=== PATIENT | male | born 1945 | race Caucasian/White ===

== ENCOUNTER 2019-01-17 09:52 | Inpatient (IN) | payer MEDICARE ==
[2019-01-17] VITALS (7 sets, daily range): BP systolic 142–152; BP diastolic 78–112; PULSE 83–104; TEMP 97.8–99.4
[~2019-01-17] VITALS: Ht 177.8 cm; Wt 67.4 kg
[2019-01-17 10:22] LABS: HEMATOCRIT 39.5 % (42.0-52.0); HEMOGLOBIN 12.7 g/dl (13.5-18.0); MEAN CELL VOLUME 90 fl (80.0-100.0); MEAN CORPUSCULAR HEMOGLOBIN 29 pg (27.0-31.0); MEAN CORPUSCULAR HGB CONC 32 g/dl (33.0-37.0); PLATELET COUNT 157 K/mm3 (130-400); RED BLOOD COUNT 4.39 M/mm3 (4.20-5.60); REDCELL DISTRIBUTION WIDTH-CV 15.3 % (11.5-14.5)
[2019-01-17 10:37] LABS: BAND 16 % (0-10); LYMPHOCYTE 1 % (20.0-51.0); NEUTROPHILS 80 % (42.0-75.2); PLATELET ESTIMATE NORMAL (NORMAL)
[2019-01-17 10:39] LABS: ALBUMIN 3.7 gm/dL (3.5-5.0); BILIRUBIN,TOTAL 0.5 mg/dL (0.0-1.0); CALCIUM 9.2 mg/dL (8.4-10.2); CREATININE, serum 1.68 (0.66-1.25); POTASSIUM 3.9 mmol/L (3.4-5.0); TOTAL PROTEIN 7.2 gm/dL (6.4-8.2)
[2019-01-17] MEDS ORDERED: NORVASC 5MG5 MG/TAB (10:57)
[2019-01-17] MEDS ORDERED: TOPROL XL 25MG25 MG (10:57)
[2019-01-17] MEDS ORDERED: ASPIRIN 81M81 MG/TA2 (10:58)
[2019-01-17] MEDS ORDERED: RT ADVAIR 528 DISKUS (10:58)
[2019-01-17] MEDS ORDERED: LIPITOR 40MG TA40 MG (10:58)
[2019-01-17] MEDS ORDERED: ALBUTEROL0.83 MG/ML (10:59)
[2019-01-17] MEDS ORDERED: PROVENTIL0.09 MG/A1 (10:59)
[2019-01-17 12:02] LABS: COLLECTION METHOD CLEAN CATCH
[2019-01-17 12:14] LABS: MUCOUS Present /lpf; PH 6 (5-8); SQUAMOUS EPITHELIAL None Seen /hpf; URINE APPEARANCE Clear; URINE BACTERIA None Seen /hpf; URINE BILIRUBIN Negative (NEGATIVE); URINE BLOOD Negative (NEGATIVE); URINE COLOR Yellow; URINE GLUCOSE Negative (NEGATIVE); URINE KETONE Negative (NEGATIVE); URINE LEUKOCYTE ESTERASE Negative (NEGATIVE); URINE NITRATE Negative (NEGATIVE); URINE PROTEIN(semi-quant) 2+ (NEGATIVE); URINE UROBILINOGEN Negative (NEGATIVE)
--- NOTE | 2019-01-17 15:33 | NUR ---
Pt up to unit early afternoon from ED. Pt alert and had to be transferred in bed d/t weakness and fall precaution. Pt has significant tremors noted. Pt and spouse report back pain. Pt grimaces with major movement of his back. Pt has pillow to float legs to decrease pressure. Pt RAC IV patent no redness or infiltration and has NS running per orders at this time. Pt going to have CT today. Pt BP was taken by aide and showed to be significantly high. Nurse rechecked with right arm extended and kept pt calm and relaxed reducing tremors while taking BP and was 148/87. Pt placed on fall precautions d/t [facility] and vascular dementia leading to behaviors at times. Pt has call light in reach and denies needs at this time. Pt was given multiple blankets d/t being cold per pt. Pt resting comfortably in bed at this time with family at bedside.
--- NOTE | 2019-01-17 16:00 | NUR ---
Pt taken down to CT by Jodi via bed transfer and pt has oxygen via nasal cannula.
[2019-01-17 18:07] LABS: TOTAL PROTEIN,CSF 106 mg/dL (15-45)
--- NOTE | 2019-01-17 18:27 | NUR ---
Pt alert but conversation confused at times. Pt able to follow commands at times. Pt grimaces when moved and spouse reports back pain with movement. Pt tremors remain unchanged. Pt gets cold easily. Pt swallow assessed at bedside. Pt has no difficulty with swallow. Pt had bedside lumbar puncture at bedside after consent signed. Pt puncture site covered with bandaid and no drainage noted. BP stable no PRN Hydralazine given. Pt IV remains patent no redness or infiltration noted. Pt orthostatics attempted. Pt unable to stand. Pt has call light in reach and remains on fall precautions.
[2019-01-17 18:33] LABS: CSF APPEARANCE CLEAR; CSF COLOR COLORLESS; CSF RBC 1 /mm3 (0-0)
[2019-01-17 18:45] LABS: CSF MONONUCLEAR 90 % (70-100); CSF POLYMORPHONUCLEAR 10 % (0-6)
--- NOTE | 2019-01-17 18:59 | NUR ---
Pt report given to Chen HORTON.
--- NOTE | 2019-01-17 21:00 | NUR ---
DR. BAXTER CAME TO SEE PT THIS NOC. ORTHO STATIC VITALS WHERE ATTEMPTED AND PT WAS UNABLE TO STAND UP LONG ENOUGH FOR BLOOD PRESSURE TO BE OBTAINED. DOCTOR ORDERS WHERE PUT INTO COMPUTER BY THIS NURSE. LAB NOTIIFED ABOUT LAB NEEDS. AT BEDSIDE DURING DOCTOR EXAMINATION.
[2019-01-18 03:31] VITALS: BP 146/84; PULSE 93; TEMP 98.6
--- NOTE | 2019-01-18 05:02 | NUR ---
PT HAD UNEVENTFUL NOC. HAD C/O PAIN AT POSITION CHANGES BUT STATED WAS COMFORTABLE OTHERWISE. STATED HE WAS ABLE TO GET SOME SLEEP DURING THE NOC. NEUROS REMMAIN UNREMARKABLE. PT SWALLOWED PILLS OK THIS SHIFT.
[2019-01-18 06:54] LABS: BASO % 0.2 % (0.0-2.0); EOS # 0.2 (0.0-0.7); EOS % 2.4 % (0-4.0); GRAN # 8.3 (1.4-6.5); GRAN % 86.5 % (42.2-75.2); LYMPH # 0.3 (1.2-3.4); LYMPH % 3.5 % (20.0-51.0); MEAN CELL VOLUME 91 fl (80.0-100.0); MEAN CORPUSCULAR HGB CONC 32 g/dl (33.0-37.0); MEAN PLATELET VOLUME 10.4 fl (7.4-10.4); MONO # 0.7 (0.1-0.6); PLATELET COUNT 117 K/mm3 (130-400); RED BLOOD COUNT 3.53 M/mm3 (4.20-5.60); REDCELL DISTRIBUTION WIDTH-CV 15.8 % (11.5-14.5)
[2019-01-18 07:04] LABS: HEMATOCRIT 32.1 % (42.0-52.0); HEMOGLOBIN 10.1 g/dl (13.5-18.0); MEAN CORPUSCULAR HEMOGLOBIN 29 pg (27.0-31.0)
[2019-01-18 07:09] LABS: ALBUMIN 2.9 gm/dL (3.5-5.0); BILIRUBIN,TOTAL 0.6 mg/dL (0.0-1.0); CALCIUM 8.5 mg/dL (8.4-10.2); CREATININE, serum 1.39 (0.66-1.25); POTASSIUM 3.8 mmol/L (3.4-5.0); TOTAL PROTEIN 5.8 gm/dL (6.4-8.2)
--- NOTE | 2019-01-18 07:15 | NUR ---
Received report, patient is resting in bed, covers are off. Replaced covers, did speak with patient and he smiled without much to say. Shows no signs of pain. Call light is within reach.
[2019-01-18 07:38] VITALS: BP 154/81; PULSE 87; TEMP 98.6
--- NOTE | 2019-01-18 11:27 | NUR ---
TONYA met with the patient's , Radha, to discuss discharge plan. The patient was having an MRI done. The patient has been residing at [facility]. The patient's reports that the plan is for the patient to return back to [facility] upon discharge. TONYA presented and explained the patient choice form to the patient's . The patient's signed and she was provided a copy. TONYA contacted Brigid at [facility]. Brigid confirmed that the patient is a long-term care resident there and resides in [facility]. TONYA to fax updates to [facility] and continue to follow.
[2019-01-18 11:57] VITALS: BP 148/77; PULSE 89; TEMP 98
[2019-01-18 15:46] VITALS: BP 134/80; PULSE 82; TEMP 98.8
--- NOTE | 2019-01-18 18:25 | NUR ---
Patient is resting in bed, assisted with supper as went home. Call light is within reach, shows not facial grimacing as if in pain.
[2019-01-18 19:57] VITALS: BP 153/88; PULSE 86; TEMP 98.4
[2019-01-18 23:19] VITALS: BP 174/88; PULSE 97; TEMP 100.1
[2019-01-19 03:58] VITALS: BP 169/81; PULSE 99; TEMP 98.9
--- NOTE | 2019-01-19 04:53 | NUR ---
PT HAD UNEVENTFUL NOC. DIDNT SEEM TO HAVE GOTTEN MUCH SLEEP, WHEN THIS NURSE ASKED HIM IF HE DID HE SAID "OH YA," EVERYTIME THIS NURSE CHECK ON HIM HE WAS AWAKE LAYING IN BED. NO ISSUES OR CONSERS VOICED. STATED HE WAS COMFORTABLE, CHECKED CHANGED AND REPOSITINED PT NEEDED THROUGHOUT NOC.
[2019-01-19 07:54] VITALS: BP 148/88; PULSE 97; TEMP 98.2
[2019-01-19 08:38] LABS: HEMOGLOBIN 10.3 g/dl (13.5-18.0); MEAN CELL VOLUME 90 fl (80.0-100.0); MEAN CORPUSCULAR HEMOGLOBIN 28 pg (27.0-31.0); MEAN CORPUSCULAR HGB CONC 31 g/dl (33.0-37.0); MEAN PLATELET VOLUME 10.4 fl (7.4-10.4); PLATELET COUNT 108 K/mm3 (130-400); RED BLOOD COUNT 3.65 M/mm3 (4.20-5.60); REDCELL DISTRIBUTION WIDTH-CV 15.7 % (11.5-14.5)
[2019-01-19 08:56] LABS: CALCIUM 8.6 mg/dL (8.4-10.2); CREATININE, serum 1.24 (0.66-1.25); POTASSIUM 3.7 mmol/L (3.4-5.0)
[2019-01-19 08:57] LABS: EOSINOPHIL 5 % (0-4); LYMPHOCYTE 5 % (20.0-51.0); NEUTROPHILS 85 % (42.0-75.2); PLATELET ESTIMATE DECREASED (NORMAL)
--- NOTE | 2019-01-19 09:11 | NUR ---
PATIENT SITTING UPRIGHT IN BED @ 90 DEGREES FINISHING BREAKFAST, AT BEDSIDE. ATTITUDE CALM AND PLEASANT. C/O OF HEADACHE AND LOWER BACK PAIN. PATIENT REPOSITIONED AND TYLENOL GIVEN. TELEMETRY REPORTING TACHYCARDIA > 105. RESPIRATIONS 24 REGULAR RATE AND RYHTHM. USE OF ACCESSORY MUSCLES TO BREATHE. REPORTS RESPIRATORY EFFORT IS THE SAME IT HAS BEEN SINCE ADMISSION. SEE EMAR FOR AM MEDICATIONS ADMINISTERED ORDERED. NS IFUSING THROUGH L AC IV SITE AT 125ML/HR ORDERED. SITE WNL. PATIENT AND DENIES CONCERNS OR QUESTIONS BEFORE LEAVING ROOM.
--- NOTE | 2019-01-19 09:40 | NUR ---
Initial visit; Patient's stated they are new to [place] and thanked Stewardess Supervisor for stopping in and wishing Daryl well and offering God's blessings.
--- NOTE | 2019-01-19 10:32 | NUR ---
SW and SW student attended clinical rounds. The patient is to have an echocardiogram today. SW to fax updates to Brigid at [facility] and continue to follow.
--- NOTE | 2019-01-19 10:53 | NUR ---
DR AHUMADA HOSPITALIST ROUNDING ON PATIENT. DISCUSSED REPORTED TACHYCARDIA, ELEVATED BP, HEADACHE, AND TACHYPNEA. SEE CHART FOR ORDERS RECEIVED. NS INFUSION DISCONTINUED AND LEFT AC IV SITE SALINE LOCKED. IV ROCEPIN AND PO ZITHROMAX DC. AUGMENTIN PO STARTED FOR UIT. PATIENT AND FAMILY AGREE WITH PLAN OF CARE AFTER PROVIDER ROUNDS AND DENIES QUESTIONS OR CONCERNS.
--- NOTE | 2019-01-19 10:57 | NUR ---
PATIENT REPOSTIONED AND PERSONAL HYGIENE COMPLETED AFTER PHYSCIANS ROUNDS. PATIENT REPORTS THAT HEADACHE IS BETTER
[2019-01-19 12:07] VITALS: BP 156/75; PULSE 96; TEMP 98.7
--- NOTE | 2019-01-19 12:54 | NUR ---
CALL FROM WERO IN MRI CHECKING TO SEE IF EXAM STILL NEEDING TO BE COMPLETED. CALL TO KATHE PUENTE FOR DR AHUMADA, SHE COMMINCATED THAT SHE WOULD CHECK WITH ORDERING PROVIDER AND NOTIFY RADIOLOGY. REPORTED BNP RESULTED THIS AM. NO NEW ORDERS ATTHIS TIME. WAITING ON CHEST XRAY AND ECHO REPORTS.
[2019-01-19 16:00] VITALS: BP 180/100; PULSE 102; TEMP 98
--- NOTE | 2019-01-19 16:21 | NUR ---
PATIENT CONTINUES WITH INCONTINENT [facility]ODES [facility] CALL TO Bubba PUENTE FOR DR AHUMADA. NOTIFIED OF INCONTINENCE. ORDER RECEIVED TO INSERT PETERSON CATHETER.
--- NOTE | 2019-01-19 18:36 | NUR ---
BP 180/100. PATIENT DENIES C/O OF CHEST PAIN, SHORTNESS OF BREATHE, OR HEADACHE. PRESENTS WITH MUSCLE TREMORS QUCK PATIENT WATSON PRESENTED WITH BUT REPORTS THAT THEY ARE WORSE. CALL TO CAROLE PUENTE. COMMUNICATED ABOVE ASSESSMENT. COMMUNICATION TO ADMINISTER PRN HYDRALAZINE AND CONTINUE TO MONITOR. HYDRALAZINE 20MG IVP ADMINISTERED ACCORDING TO ORDER.
[2019-01-19 19:13] VITALS: BP 153/80; PULSE 102; TEMP 100.7
--- NOTE | 2019-01-19 20:00 | NUR ---
PT AWAKE AND PLEASENT. NO CONSERNS VOICED. SUPERVISOR PREPRESS STATED THAT HE WAS SOUNDING HIGH PULSE RATE ALARM. PT SITTING UP IN BED WATCHING TV. VITALS OBTAINED AT THIS TIME.
[2019-01-20] VITALS (7 sets, daily range): BP systolic 138–159; BP diastolic 78–90; PULSE 58–104; TEMP 97.9–100.7
--- NOTE | 2019-01-20 | NUR ---
PT HAD SET OFF HIGH RATE ALARM ON TELE SEVERAL TIMES IN THE EVENING. CAROLE ROBERT NOTIFIED. EKG WAS OBTAINED AND A CONSULT PUT IN FOR CARDS. CAROLE STATED FOR US TO CONTINUE TO KEEP AN CLOSE EYE ON.
--- NOTE | 2019-01-20 02:00 | NUR ---
PT STATED HE WAS HAVING SOME BACK PAIN. OFFERED HIM SOME TYLENOL, PT STATED "MAYBE LATER." THIS NURSE HELPED REPOSITION PT IN ATTEMPTS TO MAKE HIM MORE COMFORTATBLE. PT WAS THEN ABLE TO GET SOME REST AFTERWARDS.
--- NOTE | 2019-01-20 05:30 | NUR ---
PT LAYING IN BED STILL SLEEPING AT THIS TIME.
--- NOTE | 2019-01-20 06:25 | NUR ---
PT WAS AWAKENED FOR LAB DRAW THIS AM. THIS NURSE CHECKED ON PT. STATED THAT HE FELT NICE AND REFRESHED AFTER GETTING SOME SLEEP AND FELT LIKE HE WAS ABLE TO GET SOME MORE SLEEP.
[2019-01-20 06:58] LABS: BASO % 0.1 % (0.0-2.0); EOS # 0.3 (0.0-0.7); EOS % 3.6 % (0-4.0); GRAN # 5.4 (1.4-6.5); GRAN % 78.1 % (42.2-75.2); LYMPH # 0.3 (1.2-3.4); LYMPH % 4.3 % (20.0-51.0); MEAN CELL VOLUME 89 fl (80.0-100.0); MEAN CORPUSCULAR HGB CONC 31 g/dl (33.0-37.0); MEAN PLATELET VOLUME 11.3 fl (7.4-10.4); MONO # 0.9 (0.1-0.6); MONO % 13.3 % (1.7-9.3); PLATELET COUNT 120 K/mm3 (130-400); RED BLOOD COUNT 3.46 M/mm3 (4.20-5.60); REDCELL DISTRIBUTION WIDTH-CV 15.7 % (11.5-14.5)
[2019-01-20 06:59] LABS: HEMATOCRIT 30.9 % (42.0-52.0); HEMOGLOBIN 9.7 g/dl (13.5-18.0); MEAN CORPUSCULAR HEMOGLOBIN 28 pg (27.0-31.0)
[2019-01-20 07:23] LABS: CALCIUM 8.7 mg/dL (8.4-10.2); CREATININE, serum 1.4 (0.66-1.25); MAGNESIUM 1.7 mg/dL (1.6-2.3); POTASSIUM 3.3 mmol/L (3.4-5.0)
[2019-01-20 07:43] LABS: TROPONIN-I 0.111 ng/mL (0.000-0.035)
--- NOTE | 2019-01-20 07:48 | NUR ---
CALL FROM LAB REPORTING TROPONIN @ 0.111. NO PREVIOS RESULTS NOTED. CARDIOLOGY CONSULT IN PLACE TO NOTIFY HOSPITALIST SERVICES.
--- NOTE | 2019-01-20 09:29 | NUR ---
CALL FROM LAB WITH REPORT THAT 0900 TROPONIN WAS 0.101 WHICH IS A CRITICAL LAB VALUE. KATHE PUENTE FOR DR AHUMADA NOTIFIED OF LAB REULT. NO NEW ORDERS RECEIVED. TO RECHECK TROPONIN AT 1200 THIS AFTERNOON.
--- NOTE | 2019-01-20 11:51 | NUR ---
TONYA faxed updates to Brigid at [facility].
[2019-01-20 13:04] LABS: ARTERIAL BLD GAS O2 SATURATION 97.6 % (92-100); ARTERIAL BLOOD GAS BASE EXCESS 2.6 (-2-2); ARTERIAL BLOOD GAS HCO3 26.8 meq/L (22-26); ARTERIAL BLOOD GAS PCO2 39.5 mmHg (35-45); ARTERIAL BLOOD GAS PO2 112.9 mmHg (80-100); ARTERIAL BLOOD GAS pH 7.45 (7.35-7.45)
--- NOTE | 2019-01-20 13:37 | NUR ---
TROPONIN RESULTED 0.095. CALL TO KATHE PUENTE FOR DR. AHUMADA. NO NEW ORDERS RECEIVED. PATIENT CURRENTLY SITTING ON SIDE OF BED EATING LUNCH. DENIES COMPLAINTS OR CONCERNS. AT BEDSIDE.
--- NOTE | 2019-01-20 13:51 | NUR ---
ARTERIAL BLOOD GASES RESULTED TO CHART AT THIS TIME. KATHE PUENTE FOR DR ZITA RG.
--- NOTE | 2019-01-21 01:13 | NUR ---
Completed assessment and medication administration; PT tolerated all cares and medications well; PT denies pain at time of assessment; Reports intermittent head and neck pain have been a problem for him; PT alert with intermittent confusion, BS active x4, RUL diminshed, AMB heavy 2+ assist; No further assessed or reported concerns or complaints at time of exit; PT assisted to a comfortable position in bed with personal items and call lights within reach; Will continues to monitor. CDA
--- NOTE | 2019-01-21 03:18 | NUR ---
PT resting well intermittently in bed; Christopher continues to drain dependent without kinks to collection bag; No further acute complaints or concerns at times of rounds; Will continue to monitor. CDA
[2019-01-21 03:53] VITALS: BP 152/85; BP 482/85; PULSE 98; TEMP 98
--- NOTE | 2019-01-21 07:00 | NUR ---
Report given to CLIFFORD Mitchell; No significant changes or concerns at time of shift change. CDA
[2019-01-21 07:11] LABS: BASO % 0.3 % (0.0-2.0); EOS # 0.5 (0.0-0.7); EOS % 7.9 % (0-4.0); GRAN # 4.4 (1.4-6.5); GRAN % 70.7 % (42.2-75.2); LYMPH # 0.4 (1.2-3.4); LYMPH % 6.9 % (20.0-51.0); MEAN CELL VOLUME 90 fl (80.0-100.0); MEAN CORPUSCULAR HGB CONC 32 g/dl (33.0-37.0); MEAN PLATELET VOLUME 10.9 fl (7.4-10.4); MONO # 0.9 (0.1-0.6); MONO % 13.7 % (1.7-9.3); PLATELET COUNT 137 K/mm3 (130-400); RED BLOOD COUNT 3.42 M/mm3 (4.20-5.60); REDCELL DISTRIBUTION WIDTH-CV 15.8 % (11.5-14.5)
[2019-01-21 07:15] LABS: HEMATOCRIT 30.9 % (42.0-52.0); HEMOGLOBIN 9.9 g/dl (13.5-18.0); MEAN CORPUSCULAR HEMOGLOBIN 29 pg (27.0-31.0)
[2019-01-21 07:27] LABS: CALCIUM 8.8 mg/dL (8.4-10.2); CREATININE, serum 1.41 (0.66-1.25)
[2019-01-21 07:52] VITALS: BP 180/89; PULSE 94; TEMP 99
--- NOTE | 2019-01-21 09:00 | NUR ---
Assessment complete. Pt is alert but confused; unable to answer orientation questions appropriately. Breathing is even and unlabored on 2L via NC. Tele on. RF INT flushes easily, remains free of complications, and is CDI. Christopher is draining clear, yellow urine and it remains free of complications. Pt's is at the bedside; all questions answered. Pt is sitting up in the bed watching TV at this time and he denies further needs. Call light within reach, will continue to monitor.
[2019-01-21 12:12] VITALS: BP 146/95; PULSE 96; TEMP 98.1
--- NOTE | 2019-01-21 13:15 | NUR ---
Pt left the floor for MRI at this time.
--- NOTE | 2019-01-21 13:37 | NUR ---
SW student faxed up dates to Brigid at [facility].
--- NOTE | 2019-01-21 13:57 | NUR ---
Pt returned to room 312.
[2019-01-21 16:05] VITALS: BP 150/85; PULSE 72; TEMP 98.3
--- NOTE | 2019-01-21 18:55 | NUR ---
Pt has been resting on and off throughout the day. He had the second MRI this afternoon with anesthesia associates and has recovered free of complications. Pt's has remained at the bedside; all questions answered. Pt is sitting up in the bed eating his dinner at this time and he denies further needs. Call light within reach.
--- NOTE | 2019-01-21 19:05 | NUR ---
Report given to CLIFFORD Ledezma.
[2019-01-21 19:14] VITALS: BP 150/77; PULSE 86; TEMP 98
--- NOTE | 2019-01-21 21:30 | NUR ---
Complete assessment and medication administration; PT tolerated call cares well; PT resting in bed post meal and medications; PT Alert with intermittent confusion, jennifer UL CTA with fine crackles to jennifer bases, BS active x4, jhaveri in place unkinked draining to dependent collection bag; urine clear yellow; No further assessed or verbalized concerns at time of exit; PT assisted to comfortable position in bed with personal items and call light within reach; No report of pain or discomfort; Will continue to monitor. CDA
[2019-01-21 23:23] VITALS: BP 143/79; PULSE 78; TEMP 98
--- NOTE | 2019-01-22 02:14 | NUR ---
PT resting well in bed; jhaveri draining clear yellow urine to dependent collection bag; No further assessed concerns or complaints at time of exit; PT assisted to comfortable position in bed with personal items and call light within reach; Will continues to monitor. CDA
[2019-01-22 03:50] VITALS: BP 155/90; PULSE 73; TEMP 98.1
[2019-01-22 06:55] VITALS: BP 139/83; PULSE 70; TEMP 98.3
--- NOTE | 2019-01-22 06:55 | NUR ---
Report given to CLIFFORD Galo; No significant changes or concerns at time of shift change. CDA
[2019-01-22 08:16] LABS: BASO % 0.4 % (0.0-2.0); EOS # 0.5 (0.0-0.7); EOS % 8.9 % (0-4.0); GRAN # 3.8 (1.4-6.5); GRAN % 68.4 % (42.2-75.2); HEMOGLOBIN 10.2 g/dl (13.5-18.0); LYMPH # 0.5 (1.2-3.4); LYMPH % 9.7 % (20.0-51.0); MEAN CELL VOLUME 92 fl (80.0-100.0); MEAN CORPUSCULAR HEMOGLOBIN 28 pg (27.0-31.0); MEAN CORPUSCULAR HGB CONC 31 g/dl (33.0-37.0); MEAN PLATELET VOLUME 10.7 fl (7.4-10.4); MONO # 0.7 (0.1-0.6); MONO % 12.2 % (1.7-9.3); PLATELET COUNT 160 K/mm3 (130-400); REDCELL DISTRIBUTION WIDTH-CV 15.6 % (11.5-14.5)
[2019-01-22 08:25] LABS: HEMATOCRIT 33.2 % (42.0-52.0)
[2019-01-22 08:37] LABS: CALCIUM 9.1 mg/dL (8.4-10.2); CREATININE, serum 1.42 (0.66-1.25)
--- NOTE | 2019-01-22 09:15 | NUR ---
patient sitting in bed watching tv and eating breakfast. Patient assessment complete. Lung sounds throughout right side are diminished. Lung sounds on left side are clear. Heart RRR. Bowel sounds present X4. Pulses strong bilaterally. Patient on 3L NC. Denies SOB, dizziness, palpitations or pain. RFA IV site has no redness, drainage or edema. No infiltration or phlebitis. Denies other needs at this time.
[2019-01-22 11:17] VITALS: BP 141/72; PULSE 61; TEMP 98.3
--- NOTE | 2019-01-22 12:30 | NUR ---
[facility]
[2019-01-22 16:12] VITALS: BP 146/86; PULSE 70; TEMP 97.9
--- NOTE | 2019-01-22 19:26 | NUR ---
Patient laying in bed, finished eating dinner. Patient states back pain is a little better. Will get tylenol again this evening. Denies other needs at this time. Report given to CLIFFORD Santana.
[2019-01-22 19:56] VITALS: BP 138/77; PULSE 70; TEMP 97.9
--- NOTE | 2019-01-22 20:30 | NUR ---
Initial shift assessment done-alert, oriented to person ,place - pleasant, denies pain at this time- states he does not need pain pills ,states he will call when needed, repositioned, o2 at 2L/nc, Tele on, Christopher to DD with clear yellow urine. Bed alarm on. VSS.
[2019-01-22 23:02] VITALS: BP 127/70; PULSE 64; TEMP 98.2
[2019-01-23 04:30] VITALS: BP 142/84; PULSE 62; TEMP 97.9
--- NOTE | 2019-01-23 05:08 | NUR ---
Quiet night- slept well,, was given Tylenol x1 for back pain during the night. VSS
[2019-01-23 07:05] LABS: BASO % 0.7 % (0.0-2.0); EOS # 0.6 (0.0-0.7); EOS % 10.3 % (0-4.0); GRAN % 66.3 % (42.2-75.2); HEMOGLOBIN 10.2 g/dl (13.5-18.0); LYMPH # 0.5 (1.2-3.4); LYMPH % 8.3 % (20.0-51.0); MEAN CELL VOLUME 91 fl (80.0-100.0); MEAN CORPUSCULAR HEMOGLOBIN 28 pg (27.0-31.0); MEAN CORPUSCULAR HGB CONC 31 g/dl (33.0-37.0); MEAN PLATELET VOLUME 10.4 fl (7.4-10.4); MONO # 0.8 (0.1-0.6); MONO % 13.6 % (1.7-9.3); PLATELET COUNT 176 K/mm3 (130-400); REDCELL DISTRIBUTION WIDTH-CV 15.3 % (11.5-14.5)
[2019-01-23 07:10] LABS: HEMATOCRIT 32.6 % (42.0-52.0)
[2019-01-23 07:15] VITALS: BP 159/84; PULSE 66; TEMP 97.7
[2019-01-23 07:21] LABS: CALCIUM 9.1 mg/dL (8.4-10.2); CREATININE, serum 1.57 (0.66-1.25); POTASSIUM 4.1 mmol/L (3.4-5.0)
--- NOTE | 2019-01-23 08:44 | NUR ---
Patient assessment complete. Patient laying in bed watching tv. Patient c/o of lower back, requesting tylenol. Patient denies chest pain, SOB, dizziness, palpitations. Lung sounds are diminished throughout. Heart RRR. Pulses strong bilaterally. Christopher in place draining pale yellow urine. 1000ml output from overnight, emptied. INT RFA IV has no redness, drainage or edema. Bowel sounds present X4. No other needs at this time. Call light within reach.
[2019-01-23 11:02] VITALS: BP 130/71; PULSE 63; TEMP 97.9
--- NOTE | 2019-01-23 16:30 | NUR ---
Patient assisted back to bed. Patient has been in chair for most of afternoon. States his low back pain is much better than when laying in bed. Requesting tylenol before pain increases. Patient has had uneventful day. Denies other needs at this time.
[2019-01-23 16:33] VITALS: BP 141/76; PULSE 93; TEMP 97.4
[2019-01-23 19:35] VITALS: BP 135/66; PULSE 66; TEMP 98
--- NOTE | 2019-01-23 23:00 | NUR ---
PT BEEN ASKING FOR TYLENOL ROUTINELY, ADMINISTERED WHEN PT WAS ABLE TO HAVE NEXT DOSE. PT STATED THAT THE BED WAS UNCOMFORTABLE. PT WAS ALSO ASSISTED TO GET MORE COMFORTABLE. NO OTHER CONSERNS VOICED AT THIS TIME.
[2019-01-24 00:56] VITALS: BP 137/66; PULSE 74; TEMP 98.5
--- NOTE | 2019-01-24 03:15 | NUR ---
THIS NURSE WOKE UP PT FOR NOC HEPARIN SHOT. PT STATED HE WAS ABLE TO GET ABOUT 4 HOURS OF SLEEP AT THIS TIME. PT REQUESTED SOME MORE TYLENOL AT THIS TIME, ADINISITERED DOSE. PT STATED HE WAS HOPEFUL THAT HE'D BE ABLE TO GET MORE SLEEP THIS NOC.
[2019-01-24 04:34] VITALS: BP 139/99; PULSE 65; TEMP 98
[2019-01-24 06:27] LABS: BASO % 0.6 % (0.0-2.0); EOS # 0.7 (0.0-0.7); EOS % 9.3 % (0-4.0); GRAN # 4.6 (1.4-6.5); GRAN % 66.4 % (42.2-75.2); HEMOGLOBIN 10.1 g/dl (13.5-18.0); LYMPH # 0.7 (1.2-3.4); LYMPH % 9.5 % (20.0-51.0); MEAN CELL VOLUME 91 fl (80.0-100.0); MEAN CORPUSCULAR HEMOGLOBIN 29 pg (27.0-31.0); MEAN CORPUSCULAR HGB CONC 31 g/dl (33.0-37.0); MEAN PLATELET VOLUME 10.8 fl (7.4-10.4); MONO # 0.9 (0.1-0.6); MONO % 12.9 % (1.7-9.3); PLATELET COUNT 185 K/mm3 (130-400); RED BLOOD COUNT 3.55 M/mm3 (4.20-5.60); REDCELL DISTRIBUTION WIDTH-CV 15.4 % (11.5-14.5)
[2019-01-24 06:29] LABS: HEMATOCRIT 32.4 % (42.0-52.0)
[2019-01-24 06:39] LABS: CREATININE, serum 1.56 (0.66-1.25); MAGNESIUM 2.1 mg/dL (1.6-2.3)
[2019-01-24 06:40] LABS: POTASSIUM 4.3 mmol/L (3.4-5.0)
[2019-01-24 07:07] VITALS: BP 155/79; PULSE 64; TEMP 97.5
--- NOTE | 2019-01-24 08:20 | NUR ---
Assessment completed, alert/ oriented to person and place but is forgetful and mildly disoriented at times, vital signs stable /afebrile, WBC normalized, no resp.difficulty noted at rest/ lungs are CTA/ still diminished in the right middle-lower lobes, heart RRR/distal pulses are palpable, no peripheral edema noted, jhaveri cath patent with clear yellow urine, creat 1.56/ up slightly from yesterday, we have ordered him breakfast, he has taken his morning medications without any difficulty, denies other needs at this time, bed alarm is on
[2019-01-24] MEDS ORDERED: BETAPACE 80MG80 MG PO (10:48)
[2019-01-24] MEDS ORDERED: LEVAQUIN 750MG750 M1 PO (10:50)
[2019-01-24 12:00] VITALS: BP 119/66; PULSE 59; TEMP 97.9
--- NOTE | 2019-01-24 12:02 | NUR ---
First visit from the maid housekeeper. No needs right now.
--- NOTE | 2019-01-24 13:38 | NUR ---
The patient is to discharge today, 01/24, to [facility] for a skilled stay. Transportation was set for 1530, via [facility]. SW informed the patient, patient's , and the patient's nurse. They were all in agreeance. SW also presented and explained the IM form to the patient and patient's . The patient's verbalized understanding, signed, and she was provided a copy. No additional needs at this time.
[2019-01-24] MEDS ORDERED: NYSTATIN OR100 MU/ML PO (15:53)
--- NOTE | 2019-01-24 16:53 | NUR ---
patient transferring back to [facility], I have called report to receiving nurse Francesca IV removed and patient transferring at [facility]
== END 2019-01-24 17:25 | DRG 871 ==
LOC: COL.ER 09:52 → MEDICAL 12:38
PROVIDERS: Emergency Medicine; Nurse Practitioner; Physician Assistant; ADMIT Family Medicine
PROC: 009U3ZX Drainage of Spinal Canal, Percutaneous Approach, Diagnostic (ICD-10-PCS; principal; 2019-01-17)
DX: A41.9 Sepsis, unspecified organism (principal); J96.21 Acute and chronic respiratory failure with hypoxia; J18.1 Lobar pneumonia, unspecified organism; G93.40 Encephalopathy, unspecified; C34.90 Malignant neoplasm of unspecified part of unspecified bronchus or lung; N39.0 Urinary tract infection, site not specified; B37.0 Candidal stomatitis; I25.10 Atherosclerotic heart disease of native coronary artery without angina pectoris; I12.9 Hypertensive chronic kidney disease with stage 1 through stage 4 chronic kidney disease, or unspecified chronic kidney disease; W18.30XA Fall on same level, unspecified, initial encounter; Y92.230 Patient room in hospital as the place of occurrence of the external cause; N18.9 Chronic kidney disease, unspecified; E78.5 Hyperlipidemia, unspecified; E87.6 Hypokalemia; M19.90 Unspecified osteoarthritis, unspecified site; I48.0 Paroxysmal atrial fibrillation; J44.9 Chronic obstructive pulmonary disease, unspecified; I73.9 Peripheral vascular disease, unspecified; G89.29 Other chronic pain; M54.5 Low back pain; N40.0 Benign prostatic hyperplasia without lower urinary tract symptoms; F01.50 Vascular dementia, unspecified severity, without behavioral disturbance, psychotic disturbance, mood disturbance, and anxiety; Z79.82 Long term (current) use of aspirin; Z95.1 Presence of aortocoronary bypass graft; Z95.820 Peripheral vascular angioplasty status with implants and grafts; Z86.73 Personal history of transient ischemic attack (TIA), and cerebral infarction without residual deficits; Z92.21 Personal history of antineoplastic chemotherapy; Z87.891 Personal history of nicotine dependence; Z88.8 Allergy status to other drugs, medicaments and biological substances
CPT/HCPCS: 99222-AI; 99232-AI; 99233-AI; 99239; A4216; J0360; J0696; J1644; J1940; J1956; J2060; J2704; J7030

== ENCOUNTER 2019-01-27 18:11 | Inpatient (IN) | payer MEDICARE ==
[~2019-01-27] VITALS: Ht 175.3 cm; Wt 64.3 kg
[~2019-01-27 18:11] MED LIST: ALBUTEROL0.83 MG/ML; ASPIRIN 81M81 MG/TA2; BETAPACE 80MG80 MG PO; LEVAQUIN 750MG750 M1 PO; LIPITOR 40MG TA40 MG; NORVASC 5MG5 MG/TAB; NYSTATIN OR100 MU/ML PO; PROVENTIL0.09 MG/A1; RT ADVAIR 528 DISKUS; TOPROL XL 25MG25 MG
[2019-01-27 18:44] VITALS: BP 151/84; PULSE 57; TEMP 97.5
[2019-01-27] MEDS ORDERED: VIVLODEX5 MG PO (19:12)
[2019-01-27] MEDS ORDERED: MELAT3MGTAB PO (19:13)
[2019-01-27] MEDS ORDERED: RT ADVAIR 528 DISKUS IH (19:20)
[2019-01-27] MEDS ORDERED: DIFLUCAN 100MG100 MG PO (19:22)
[2019-01-27 19:26] LABS: HEMOGLOBIN 10.3 g/dl (13.5-18.0); MEAN CELL VOLUME 93 fl (80.0-100.0); MEAN CORPUSCULAR HEMOGLOBIN 29 pg (27.0-31.0); MEAN CORPUSCULAR HGB CONC 31 g/dl (33.0-37.0); MEAN PLATELET VOLUME 9.7 fl (7.4-10.4); PLATELET COUNT 208 K/mm3 (130-400); RED BLOOD COUNT 3.58 M/mm3 (4.20-5.60); REDCELL DISTRIBUTION WIDTH-CV 16.2 % (11.5-14.5)
[2019-01-27] MEDS ORDERED: SPIRIVA RESPIMAT4 GM IH (19:26)
[2019-01-27] MEDS ORDERED: TYLENOL 500MG500 MG PO (19:27)
[2019-01-27] MEDS ORDERED: ALBUTEROL0.83 MG/ML IH (19:30)
[2019-01-27 19:31] LABS: HEMATOCRIT 33.2 % (42.0-52.0); PROTHROMBIN TIME 11.9 SECONDS (9.7-12.8)
[2019-01-27] MEDS ORDERED: NORCO 325 MG-51 TAB PO (19:31)
[2019-01-27 19:37] LABS: ALBUMIN 3.3 gm/dL (3.5-5.0); BILIRUBIN,TOTAL 0.3 mg/dL (0.0-1.0); CREATININE, serum 1.58 (0.66-1.25); POTASSIUM 4.4 mmol/L (3.4-5.0); TOTAL PROTEIN 6.6 gm/dL (6.4-8.2)
[2019-01-27 19:48] LABS: PRE ALBUMIN 20.1 mg/dL (17.6-36.0)
--- NOTE | 2019-01-27 19:57 | NUR ---
Pt. laying in bed at this time with at bedside. Pt. is A&OX3, assessment complete. Pt. reports pain at a 5 on pain scale at this time. Pt. denies further needs, call light within reach.
[2019-01-27 19:58] LABS: EOSINOPHIL 2 % (0-4); METAMYELOCYTE 1 % (0-0); NEUTROPHILS 82 % (42.0-75.2)
[2019-01-27 19:59] LABS: LYMPHOCYTE 12 % (20.0-51.0); PLATELET ESTIMATE NORMAL (NORMAL)
[2019-01-27 20:15] VITALS: BP 152/81; PULSE 57; TEMP 97.4
[2019-01-27 22:57] VITALS: BP 158/81; PULSE 56; TEMP 98.1
[2019-01-27 23:18] LABS: COLLECTION METHOD CATHETER
[2019-01-27 23:27] LABS: PH 7 (5-8); SQUAMOUS EPITHELIAL None Seen /hpf; URINE APPEARANCE Clear; URINE BACTERIA None Seen /hpf; URINE BILIRUBIN Negative (NEGATIVE); URINE BLOOD Negative (NEGATIVE); URINE COLOR Straw; URINE GLUCOSE Negative (NEGATIVE); URINE KETONE Negative (NEGATIVE); URINE LEUKOCYTE ESTERASE Negative (NEGATIVE); URINE NITRATE Negative (NEGATIVE); URINE PROTEIN(semi-quant) Negative (NEGATIVE); URINE RBC None Seen /hpf; URINE UROBILINOGEN Negative (NEGATIVE)
[2019-01-28] VITALS (12 sets, daily range): BP systolic 107–153; BP diastolic 53–86; PULSE 58–69; TEMP 97.7–98.1
--- NOTE | 2019-01-28 06:22 | NUR ---
Pt. slept well through the night. Pt. remains A&OX3. IV to lt. forearm remains patent, IV fluids infusing per orders. Pt. denies further needs at this time.
--- NOTE | 2019-01-28 06:50 | NUR ---
appears to be dozing, awakens easily, bedside shift report received from CLIFFORD Wagoner
[2019-01-28 07:58] LABS: PATHOLOGY DIFF REVIEW OK
--- NOTE | 2019-01-28 08:10 | NUR ---
awake and visiting with family, full assessment completed, see interventions for further info, denies needs at this time
--- NOTE | 2019-01-28 09:22 | NUR ---
SW attended clinical rounds to discuss discharge planning. Patient is a current resident at [facility] and plans to return there upon discharge. Patient signed choice form. SW will fax clinical info to [facility]. Patient's PCP is Dr Rivers and he obtains prescriptions from [facility]. Patient does have a DPOA and copies are in the EMR. SW will continue to follow.
--- NOTE | 2019-01-28 09:30 | NUR ---
Dr Zaldivar and care team in to see patient
--- NOTE | 2019-01-28 10:00 | NUR ---
resting in bed, had am care and tolerated wel,
--- NOTE | 2019-01-28 11:30 | NUR ---
remains in bed without c/os, family remains at bedside
--- NOTE | 2019-01-28 13:30 | NUR ---
to surgery per bed
--- NOTE | 2019-01-28 16:00 | NUR ---
remains in surgery
--- NOTE | 2019-01-28 17:10 | NUR ---
returned to room per bed from PACU, awake and alert but sleepy, IV infusing and placed on pump at 100ml/hr, O2 on at 2L/NC and O2 sat 93%, jhaveri cath patent draining clear yellow urine, SCDS and LINDY hose on bilaterally, aquacel dressing to left hip CD&I and ice in place, requesting a drink of water and will provide, denies other needs, family at bedside
--- NOTE | 2019-01-28 17:30 | NUR ---
sleeping between checks, heart rate strong and regular, lungs CTA, bowel sound quiet, abdomen soft and non distended, peripheral pulses present in 4 extremities, awakens easily and denies needs
--- NOTE | 2019-01-28 17:45 | NUR ---
continues to sleep but awakens easily
--- NOTE | 2019-01-28 17:53 | NUR ---
Pt is in room with family and son and resting in bed. Call light is within reach. Reported off to CLIFFORD Ziegler
--- NOTE | 2019-01-28 18:40 | NUR ---
beginning to wake up and is beginning to have some pain, medicated with hydrocodone 5mg 1 tab
--- NOTE | 2019-01-28 18:49 | NUR ---
bedside shift report given to CLIFFORD Bustamante
--- NOTE | 2019-01-28 22:45 | NUR ---
Shift assessment complete. Patient drowsy, but oriented to self and time. Per patient statement, he didn't remember that the surgery was done already. Once oriented, he stated he remembered. He c/o mild pain in left hip, prn pain medication given. Denies further needs at this time. Will continue to monitor.
[2019-01-29 01:45] VITALS: BP 135/55; PULSE 111; TEMP 98.1
[2019-01-29 04:34] VITALS: BP 125/69; PULSE 60; TEMP 98
[2019-01-29 07:07] LABS: BASO % 0.3 % (0.0-2.0); EOS % 0.2 % (0-4.0); GRAN # 8.4 (1.4-6.5); GRAN % 83.3 % (42.2-75.2); LYMPH # 0.5 (1.2-3.4); LYMPH % 5.1 % (20.0-51.0); MEAN CELL VOLUME 95 fl (80.0-100.0); MEAN CORPUSCULAR HGB CONC 31 g/dl (33.0-37.0); MEAN PLATELET VOLUME 10.4 fl (7.4-10.4); MONO # 1.1 (0.1-0.6); MONO % 10.4 % (1.7-9.3); PLATELET COUNT 192 K/mm3 (130-400); REDCELL DISTRIBUTION WIDTH-CV 16.1 % (11.5-14.5)
[2019-01-29 07:11] LABS: HEMATOCRIT 28.4 % (42.0-52.0); HEMOGLOBIN 8.7 g/dl (13.5-18.0); MEAN CORPUSCULAR HEMOGLOBIN 29 pg (27.0-31.0)
[2019-01-29 07:17] LABS: CALCIUM 8.6 mg/dL (8.4-10.2); CREATININE, serum 1.62 (0.66-1.25); POTASSIUM 4.8 mmol/L (3.4-5.0)
[2019-01-29 08:17] VITALS: BP 120/63; PULSE 65; TEMP 98.5
[2019-01-29 12:19] VITALS: BP 119/58; PULSE 69; TEMP 100.3
--- NOTE | 2019-01-29 12:30 | NUR ---
Personal Care Service Provider prayed and offered support with patient while spouse was in room.
--- NOTE | 2019-01-29 12:30 | NUR ---
Patient has been gradually getting more and more confused since shfit change this am. He is also being rude when asking him questions. His was here but left for a little while. He was upset about sitting up in the chair this morning. He ate breakfast but is refusing to eat lunch and drink fluids. IVF's still infusing since patients output is on the low side and he is refusing to eat or drink. Dressing to left hip remains C/D/I. No other changes at this time. Call light within reach. Chair alarm on.
--- NOTE | 2019-01-29 13:29 | NUR ---
SW faxed update to [facility].
[2019-01-29 17:00] VITALS: BP 133/69; PULSE 76; TEMP 100
--- NOTE | 2019-01-29 18:30 | NUR ---
Patient is back in bed. He did not transfer well. He stated having pain to left hip. tylenol given once for pian today. No other hanges at this itme. Call light camiloin reach. Patient had a temp of 100.3 earlier, notified Dr Valle. No increased shortness of breath noted. No other changes at this time. Call light within reach.
--- NOTE | 2019-01-29 19:13 | NUR ---
Report received from CLIFFORD Jurado.
[2019-01-29 19:59] VITALS: BP 113/64; PULSE 79; TEMP 98.5
--- NOTE | 2019-01-29 21:27 | NUR ---
Patient noted to be very confused. Staff attempts to orient with no success. Patient noted to be tugging at catheter, telemetry, and call light. Reorientation needed frequently. Kelly MOLD YARD SUPERVISOR called and updated about the situation and ordered Seroquel 25mg. Patient took this with no difficulty. Will continue to monitor patient.
[2019-01-30] VITALS (8 sets, daily range): BP systolic 121–168; BP diastolic 48–88; PULSE 65–88; TEMP 97.5–99.3
--- NOTE | 2019-01-30 00:24 | NUR ---
Patient resting in bed. Appears to be settled down and less anxious. Appears to be sleeping at this time. Will continue to monitor patient.
--- NOTE | 2019-01-30 06:13 | NUR ---
Patient has rested well throughout the night. No restlessness or anxiety noted after Seroquel was given. Otherwise an uneventful night.
--- NOTE | 2019-01-30 06:55 | NUR ---
Report given to CLIFFORD Jurado.
[2019-01-30 08:06] LABS: BASO % 0.2 % (0.0-2.0); EOS % 0.2 % (0-4.0); GRAN # 8.9 (1.4-6.5); GRAN % 80.4 % (42.2-75.2); LYMPH # 0.5 (1.2-3.4); LYMPH % 4.3 % (20.0-51.0); MEAN CELL VOLUME 92 fl (80.0-100.0); MEAN CORPUSCULAR HGB CONC 31 g/dl (33.0-37.0); MEAN PLATELET VOLUME 10.7 fl (7.4-10.4); MONO # 1.6 (0.1-0.6); PLATELET COUNT 169 K/mm3 (130-400); REDCELL DISTRIBUTION WIDTH-CV 16.1 % (11.5-14.5)
[2019-01-30 08:12] LABS: CALCIUM 8.8 mg/dL (8.4-10.2); CREATININE, serum 1.6 (0.66-1.25); HEMATOCRIT 24.7 % (42.0-52.0); HEMOGLOBIN 7.7 g/dl (13.5-18.0); MEAN CORPUSCULAR HEMOGLOBIN 29 pg (27.0-31.0); POTASSIUM 4.2 mmol/L (3.4-5.0)
--- NOTE | 2019-01-30 11:00 | NUR ---
Patient has been continuously pulling at his tele leads and jhaveri. He continues to restless. He has been given tylenol for pain and it seems to help. He denies nausea. He was very alert with his breakfast and partially oriented but he is now back to not responding to questions and falling asleep. His wants to sleep because he has not slept much being admitted. She stated last time he was the same way, did not sleep and became more and more confused and restless. Explained he is getting some medications to help him sleep. No other changes at this time. Call light within reach.
--- NOTE | 2019-01-30 11:30 | NUR ---
Candi d\c'ed 750cc pale yellow urine.
--- NOTE | 2019-01-30 18:32 | NUR ---
Patient has been doing well this afternoon. He is still restless but not as bad as when he had the jhaveri and tele. IVF's were also stopped. Dinner has been ordered. Tylenol given once more this afternoon. No other changes at this time. Call light within reach. Bed alarm on.
--- NOTE | 2019-01-31 03:05 | NUR ---
Patient up to the bathroom a couple times throughout the night to use the commode. Large bowel movement noted. Patient 2-3 assist to the commode. Attempted to walk to the bathroom and was able to make it there with difficulty, and made it [facility] back to the bed, when a wheelchair needed to be utilized. Patient resting in bed with eyes closed. Bed alarm on.
[2019-01-31 05:30] VITALS: BP 147/70; PULSE 72; TEMP 98.8
--- NOTE | 2019-01-31 06:40 | NUR ---
awake resting in bed, bedside shift report received from CLIFFORD Overton
--- NOTE | 2019-01-31 07:10 | NUR ---
Report given to CLIFFORD Ziegler.
[2019-01-31 07:37] LABS: BASO % 0.2 % (0.0-2.0); EOS % 0.1 % (0-4.0); GRAN # 10.2 (1.4-6.5); GRAN % 83.7 % (42.2-75.2); LYMPH # 0.6 (1.2-3.4); LYMPH % 4.6 % (20.0-51.0); MEAN CELL VOLUME 90 fl (80.0-100.0); MEAN CORPUSCULAR HGB CONC 32 g/dl (33.0-37.0); MEAN PLATELET VOLUME 11.3 fl (7.4-10.4); MONO # 1.3 (0.1-0.6); MONO % 10.7 % (1.7-9.3); PLATELET COUNT 179 K/mm3 (130-400); RED BLOOD COUNT 2.72 M/mm3 (4.20-5.60); REDCELL DISTRIBUTION WIDTH-CV 16.5 % (11.5-14.5)
[2019-01-31 07:38] LABS: HEMATOCRIT 24.5 % (42.0-52.0); HEMOGLOBIN 7.9 g/dl (13.5-18.0); MEAN CORPUSCULAR HEMOGLOBIN 29 pg (27.0-31.0)
[2019-01-31 08:21] LABS: CALCIUM 8.9 mg/dL (8.4-10.2); CREATININE, serum 1.43 (0.66-1.25); POTASSIUM 4.4 mmol/L (3.4-5.0)
[2019-01-31 08:23] VITALS: BP 151/69; PULSE 68; TEMP 98.7
--- NOTE | 2019-01-31 08:32 | NUR ---
sitting up in bed eating breakfast with assisting
--- NOTE | 2019-01-31 09:15 | NUR ---
has had breakfast and tolerated well, medicated with tylenol 650mg po for pain/discomfort to left hip, occupational therapy now in to work with patient
--- NOTE | 2019-01-31 09:30 | NUR ---
full assessment complted, see interventions for further info
--- NOTE | 2019-01-31 10:50 | NUR ---
Dr Ray and care team in to see patient, will plan discharge later today
[2019-01-31 10:51] VITALS: BP 151/69; PULSE 68; TEMP 98.7
[2019-01-31 11:22] VITALS: BP 130/57; PULSE 65; TEMP 97.6
--- NOTE | 2019-01-31 11:30 | NUR ---
physical therapy in and assisted patietn with sitting up on side of bed, now resting back in bed and dozing at intervals,
[2019-01-31] MEDS ORDERED: ASPI325T6 PO (11:52)
[2019-01-31] MEDS ORDERED: TYLENOL 325MG325 MG PO (11:53)
[2019-01-31] MEDS ORDERED: SEROQUEL 2525 MG/TAB PO (11:54)
[2019-01-31] MEDS ORDERED: DULCOLAX S10 MG/SUPP RC (11:54)
[2019-01-31] MEDS ORDERED: OSCAL 500 TAB500 MG PO (11:54)
[2019-01-31] MEDS ORDERED: SENNA-S 50 MG-81 TAB PO (11:54)
[2019-01-31] MEDS ORDERED: VITAMIN C500 MG PO (11:55)
[2019-01-31] MEDS ORDERED: DUO-KAPS1 CAP PO (11:55)
[2019-01-31] MEDS ORDERED: FERROUS SU325 MG/TAB PO (11:56)
--- NOTE | 2019-01-31 11:59 | NUR ---
aquacel dressing to left hip removed and only minimal drainage, steristrips placed and covered with airstrip dressing, at bedside
--- NOTE | 2019-01-31 12:02 | NUR ---
The patient is to discharge to [facility] today, 01/31. TONYA contacted [facility] and confirmed a 1430 transport time. TONYA informed the patient, his , and the patient's nurse all were in agreeance. TONYA presented the IM form to the patient's , the patient was sleeping. The patient's understood and signed the form. A copy was given to the patient's and the original was placed in the chart. TONYA faxed updates and the discharge orders to [facility]. There are no additional needs at this time.
--- NOTE | 2019-01-31 13:15 | NUR ---
resting in bed, had lunch and tolerated well
--- NOTE | 2019-01-31 14:30 | NUR ---
paradi tender IN AND ASSITING HIM WITH GETTING DRESSED FOR DISCHARGE
--- NOTE | 2019-01-31 15:20 | NUR ---
discharged per to [facility],
--- NOTE | 2019-01-31 15:38 | NUR ---
[facility]
== END 2019-01-31 15:20 | DRG 470 ==
LOC: COL.ER 18:11 → SURG 18:24
PROVIDERS: Nurse Practitioner; Orthopaedic Surgery; Physician Assistant; ADMIT Hospitalist
PROC: 0SRS0JZ Replacement of Left Hip Joint, Femoral Surface with Synthetic Substitute, Open Approach (ICD-10-PCS; principal; 2019-01-28 14:00)
DX: S72.002A Fracture of unspecified part of neck of left femur, initial encounter for closed fracture (principal); B37.0 Candidal stomatitis; I13.0 Hypertensive heart and chronic kidney disease with heart failure and stage 1 through stage 4 chronic kidney disease, or unspecified chronic kidney disease; I50.30 Unspecified diastolic (congestive) heart failure; Z85.118 Personal history of other malignant neoplasm of bronchus and lung; N18.9 Chronic kidney disease, unspecified; I25.10 Atherosclerotic heart disease of native coronary artery without angina pectoris; J44.9 Chronic obstructive pulmonary disease, unspecified; M54.5 Low back pain; F01.50 Vascular dementia, unspecified severity, without behavioral disturbance, psychotic disturbance, mood disturbance, and anxiety; Z95.5 Presence of coronary angioplasty implant and graft; Z99.81 Dependence on supplemental oxygen; W19.XXXA Unspecified fall, initial encounter; Y92.9 Unspecified place or not applicable; Z95.1 Presence of aortocoronary bypass graft; I48.0 Paroxysmal atrial fibrillation; Z86.73 Personal history of transient ischemic attack (TIA), and cerebral infarction without residual deficits
CPT/HCPCS: 99222-AI; 99231-AI; 99239; A4314; A9284; C1776; J0690; J2250; J2270; J2405; J2704; J2795; J7030

== ENCOUNTER → 2019-03-28 | Outpatient (CLI) | payer MEDICARE ==
[~2019-03-28] MED LIST changes: +ALBUTEROL0.83 MG/ML IH; +ASPI325T6 PO; +DIFLUCAN 100MG100 MG PO; +DULCOLAX S10 MG/SUPP RC; +DUO-KAPS1 CAP PO; +FERROUS SU325 MG/TAB PO; +MELAT3MGTAB PO; +NORCO 325 MG-51 TAB PO; +OSCAL 500 TAB500 MG PO; +RT ADVAIR 528 DISKUS IH; +SENNA-S 50 MG-81 TAB PO; +SEROQUEL 2525 MG/TAB PO; +SPIRIVA RESPIMAT4 GM IH; +TYLENOL 325MG325 MG PO; +TYLENOL 500MG500 MG PO; +VITAMIN C500 MG PO; +VIVLODEX5 MG PO
== END ==
LOC: COL.CARD 10:18
DX: G93.89 Other specified disorders of brain (principal)

== ENCOUNTER 2019-04-03 16:48 | Emergency (ER) | payer MEDICARE ==
[~2019-04-03] VITALS: Ht 177.8 cm; Wt 65.5 kg
[2019-04-03 16:51] VITALS: TEMP 98
[2019-04-03 18:18] LABS: COLLECTION METHOD CLEAN CATCH
[2019-04-03 18:32] LABS: PH 6 (5-8); SQUAMOUS EPITHELIAL None Seen /hpf; URINE APPEARANCE Clear; URINE BACTERIA None Seen /hpf; URINE BILIRUBIN Negative (NEGATIVE); URINE BLOOD Negative (NEGATIVE); URINE COLOR Yellow; URINE GLUCOSE Negative (NEGATIVE); URINE KETONE Negative (NEGATIVE); URINE LEUKOCYTE ESTERASE Negative (NEGATIVE); URINE NITRATE Negative (NEGATIVE); URINE PROTEIN(semi-quant) 1+ (NEGATIVE); URINE RBC 0-2 /hpf; URINE UROBILINOGEN Negative (NEGATIVE)
[2019-04-03 18:47] LABS: HEMATOCRIT 39.3 % (42.0-52.0); HEMOGLOBIN 12.9 g/dl (13.5-18.0); MEAN CELL VOLUME 92 fl (80.0-100.0); MEAN CORPUSCULAR HEMOGLOBIN 30 pg (27.0-31.0); MEAN CORPUSCULAR HGB CONC 33 g/dl (33.0-37.0); MEAN PLATELET VOLUME 9.8 fl (7.4-10.4); PLATELET COUNT 208 K/mm3 (130-400); RED BLOOD COUNT 4.28 M/mm3 (4.20-5.60); REDCELL DISTRIBUTION WIDTH-CV 14.7 % (11.5-14.5)
[2019-04-03 18:56] LABS: ALBUMIN 3.8 gm/dL (3.5-5.0); BILIRUBIN,TOTAL 0.4 mg/dL (0.0-1.0); CALCIUM 9.9 mg/dL (8.4-10.2); CREATININE, serum 1.56 (0.66-1.25); POTASSIUM 4.4 mmol/L (3.4-5.0); TOTAL PROTEIN 7.1 gm/dL (6.4-8.2)
[2019-04-03 19:44] LABS: EOSINOPHIL 3 % (0-4); LYMPHOCYTE 5 % (20.0-51.0); NEUTROPHILS 87 % (42.0-75.2); PLATELET ESTIMATE NORMAL (NORMAL)
[2019-04-03 21:02] VITALS: BP 176/91; PULSE 64
== END 2019-04-03 21:04 | disposition home or self-care (01) ==
LOC: COL.ER 16:48
PROVIDERS: Emergency Medicine
DX: S82.892A Other fracture of left lower leg, initial encounter for closed fracture (principal); S32.10XA Unspecified fracture of sacrum, initial encounter for closed fracture; S41.111A Laceration without foreign body of right upper arm, initial encounter; I10 Essential (primary) hypertension; E78.5 Hyperlipidemia, unspecified; I25.10 Atherosclerotic heart disease of native coronary artery without angina pectoris; F03.90 Unspecified dementia, unspecified severity, without behavioral disturbance, psychotic disturbance, mood disturbance, and anxiety; Z79.01 Long term (current) use of anticoagulants; Z79.82 Long term (current) use of aspirin; Z79.51 Long term (current) use of inhaled steroids; W18.39XA Other fall on same level, initial encounter; Y92.129 Unspecified place in nursing home as the place of occurrence of the external cause

== ENCOUNTER 2019-08-01 18:27 | Emergency (ER) | payer MEDICARE ==
[~2019-08-01] VITALS: Ht 177.8 cm; Wt 77.3 kg
[2019-08-01 19:16] LABS: ARTERIAL BLD GAS O2 SATURATION 94.8 % (92-100); ARTERIAL BLD GAS TCO2 CT 26.4; ARTERIAL BLOOD GAS BASE EXCESS 0.3 (-2-2); ARTERIAL BLOOD GAS HCO3 25.1 meq/L (22-26); ARTERIAL BLOOD GAS PCO2 41.3 mmHg (35-45); ARTERIAL BLOOD GAS PO2 73.3 mmHg (80-100)
[2019-08-01 19:34] VITALS: TEMP 100.8
[2019-08-01 19:53] LABS: BASO % 0.2 % (0.0-2.0); EOS # 0.3 (0.0-0.7); EOS % 2.3 % (0-4.0); GRAN % 86.5 % (42.2-75.2); HEMOGLOBIN 11.6 g/dl (13.5-18.0); LYMPH # 0.6 (1.2-3.4); LYMPH % 4.8 % (20.0-51.0); MEAN CELL VOLUME 91 fl (80.0-100.0); MEAN CORPUSCULAR HEMOGLOBIN 29 pg (27.0-31.0); MEAN CORPUSCULAR HGB CONC 32 g/dl (33.0-37.0); MONO # 0.7 (0.1-0.6); MONO % 5.6 % (1.7-9.3); PLATELET COUNT 314 K/mm3 (130-400); RED BLOOD COUNT 3.99 M/mm3 (4.20-5.60); REDCELL DISTRIBUTION WIDTH-CV 14.5 % (11.5-14.5)
[2019-08-01 19:56] LABS: INR 1.2 (0.8-3.0); PROTHROMBIN TIME 14.3 SECONDS (9.7-12.8)
[2019-08-01 19:57] LABS: HEMATOCRIT 36.2 % (42.0-52.0)
[2019-08-01 19:58] LABS: ALBUMIN 3.9 gm/dL (3.5-5.0); BILIRUBIN,TOTAL 0.6 mg/dL (0.0-1.0); C-REACTIVE PROTEIN 3.8 mg/dL (0.0-0.9); CREATININE, serum 1.86 (0.66-1.25); TOTAL PROTEIN 7.6 gm/dL (6.4-8.2)
[2019-08-01 21:47] VITALS: BP 126/67; PULSE 78
[2019-08-01 21:55] LABS: COLLECTION METHOD CATHETER
[2019-08-01 22:04] LABS: MUCOUS Present /lpf; PH 6 (5-8); SQUAMOUS EPITHELIAL None Seen /hpf; URINE APPEARANCE Clear; URINE BACTERIA None Seen /hpf; URINE BILIRUBIN Negative (NEGATIVE); URINE BLOOD 1+ (NEGATIVE); URINE COLOR Yellow; URINE GLUCOSE Negative (NEGATIVE); URINE KETONE Negative (NEGATIVE); URINE LEUKOCYTE ESTERASE Negative (NEGATIVE); URINE NITRATE Negative (NEGATIVE); URINE PROTEIN(semi-quant) 1+ (NEGATIVE); URINE UROBILINOGEN Negative (NEGATIVE)
[2019-08-01] MEDS ORDERED: ELIQUIS 2.5 PO (23:08)
== END 2019-08-01 21:49 | disposition short-term general hospital (02) ==
LOC: COL.ER 18:27
PROVIDERS: Emergency Medicine
DX: I62.9 Nontraumatic intracranial hemorrhage, unspecified (principal); I10 Essential (primary) hypertension; J44.9 Chronic obstructive pulmonary disease, unspecified; I25.10 Atherosclerotic heart disease of native coronary artery without angina pectoris; I12.9 Hypertensive chronic kidney disease with stage 1 through stage 4 chronic kidney disease, or unspecified chronic kidney disease; N18.9 Chronic kidney disease, unspecified; F03.90 Unspecified dementia, unspecified severity, without behavioral disturbance, psychotic disturbance, mood disturbance, and anxiety; Z79.82 Long term (current) use of aspirin; Z79.51 Long term (current) use of inhaled steroids
CPT/HCPCS: C9132; J0330; J1953; J3010; J7030; J7050; Q9967